=== PATIENT | male | born 1940 | race Two or more races ===

== ENCOUNTER 2020-10-18 11:03 | Day surgery (SDC) | payer MEDICARE ==
[2020-10-15 11:21] VITALS: BMI 25.1
[2020-10-18] MEDS ORDERED: Ondansetron PF 4 MG/2 ML Vial ONE (12:45)
[2020-10-18] MEDS ORDERED: PROPOFOL 200 MG/20 ML VIAL ONE (12:45)
== END 2020-10-18 14:27 | disposition home or self-care (01) ==
LOC: SDC/OP 11:03
PROVIDERS: ATTEND Neurological Surgery
DX: M47.812 Spondylosis without myelopathy or radiculopathy, cervical region (principal); M48.02 Spinal stenosis, cervical region; R27.0 Ataxia, unspecified; M54.2 Cervicalgia; Z91.041 Radiographic dye allergy status; M54.16 Radiculopathy, lumbar region; I10 Essential (primary) hypertension; N40.0 Benign prostatic hyperplasia without lower urinary tract symptoms; G20 Parkinson's disease; Z87.891 Personal history of nicotine dependence; Z79.82 Long term (current) use of aspirin; Z79.899 Other long term (current) drug therapy; M43.16 Spondylolisthesis, lumbar region
CPT/HCPCS: 72141; J2405; J2704

== ENCOUNTER 2021-10-14 13:07 | Outpatient (CLI) | payer MEDICARE ==
[2021-10-12 12:04] VITALS: BMI 24.2
== END 2021-10-14 13:32 | disposition home or self-care (01) ==
LOC: SCSMRI 13:07
PROVIDERS: ATTEND Nurse Practitioner Family
DX: M96.1 Postlaminectomy syndrome, not elsewhere classified (principal); R27.0 Ataxia, unspecified; M54.17 Radiculopathy, lumbosacral region; R26.89 Other abnormalities of gait and mobility
CPT/HCPCS: 93005; 93010